=== PATIENT | female | born 1990 | race Caucasian/White ===

== ENCOUNTER 2018-07-25 16:01 | Inpatient (IN) | payer BC, OTHER ==
[~2018-07-25] VITALS: Ht 152.4 cm; Wt 90.3 kg
[2018-07-25 17:18] LABS: BASOPHILS ABSOLUTE AUTO 0.04 K/mm3 (0.00-0.23); BASOPHILS PERCENT AUTO 0 % (0-2); EOSINOPHILS ABSOLUTE AUTO 0.04 K/mm3 (0.00-0.68); EOSINOPHILS PERCENT AUTO 0 % (0-6); Hematocrit 36.1 % (33.0-51.0); Hemoglobin 11.6 g/dL (11.5-16.0); IMMATURE GRAN PERCENT AUTO 1 % (0-1); LYMPHOCYTES ABSOLUTE AUTO 1.47 K/mm3 (0.84-5.20); LYMPHOCYTES PERCENT AUTO 8 % (21-46); MONOCYTES ABSOLUTE AUTO 1.27 K/mm3 (0.16-1.47); MONOCYTES PERCENT AUTO 7 % (4-13); Mean Corpuscular HGB 26.4 pg (26.0-34.0); Mean Corpuscular HGB Conc 32.1 g/dL (31.5-36.5); Mean Corpuscular Volume 82 fL (80-100); Mean Platelet Volume 10.8 fL (9.1-12.4); NEUTROPHILS ABSOLUTE AUTO 15.18 K/mm3 (1.96-9.15); NEUTROPHILS PERCENT AUTO 84 % (41-73); Platelet Count 218 K/mm3 (150-400); RDW Coefficient Variation 14.2 % (11.7-14.2); RDW Standard Deviation 41.9 fL (35.1-46.3)
--- NOTE | 2018-07-26 15:30 | NUR ---
REPOT TO [facility]
--- NOTE | 2018-07-26 17:47 | NUR ---
CONSULT. BABY IS IN SCN WITH IVF AND IS LESS THAN 12 HOURS OLD. INSTRUCT/DEMO SELF EBM, POSITIONING TO OBTAIN A DEEPER ASYMETRIC LATCH AND FURTHER WIDEN THE LATCH FOR COMFORT. BABY DISPLAYS GOOD SUCKLING AND STAYED AT BREAST FOR 20 MINUTES. INSTRUCT IN SKIN TO SKIN TIME AFTER BF, CHANGES TO EXPECT DURING THE FIRST WEEK WITH BABY AND WITH FEEDINGS. MOM IS LOVING WITH BABY.
--- NOTE | 2018-07-26 20:18 | NUR ---
PT REPEATEDLY STATED SHE IS NERVOUS BECAUSE SHE DOESN'T KNOW HOW TO HANDLE BABY OR GET HER TO LATCH ON HER OWN. RN REASSURED PT THAT SHE IS DOING WELL AND THAT IT IS NORMAL TO FEEL THIS WAY BECAUSE SHE HAS NEVER DONE IT BEFORE AND THAT ALL OF THE STAFF IS HERE TO HELP HER, SHE JUST NEEDS TO LET US KNOW IF SHE HAS ANY QUESTIONS OR NEEDS HELP AT ANY TIME.
[2018-07-27 05:50] LABS: BASOPHILS ABSOLUTE AUTO 0.06 K/mm3 (0.00-0.23); BASOPHILS PERCENT AUTO 0 % (0-2); EOSINOPHILS ABSOLUTE AUTO 0.17 K/mm3 (0.00-0.68); EOSINOPHILS PERCENT AUTO 1 % (0-6); Hematocrit 30.8 % (33.0-51.0); Hemoglobin 9.8 g/dL (11.5-16.0); IMMATURE GRAN ABSOLUTE AUTO 0.11 K/mm3 (0.00-0.10); IMMATURE GRAN PERCENT AUTO 1 % (0-1); LYMPHOCYTES ABSOLUTE AUTO 2.84 K/mm3 (0.84-5.20); LYMPHOCYTES PERCENT AUTO 17 % (21-46); MONOCYTES ABSOLUTE AUTO 1.45 K/mm3 (0.16-1.47); MONOCYTES PERCENT AUTO 9 % (4-13); Mean Corpuscular HGB 26.5 pg (26.0-34.0); Mean Corpuscular HGB Conc 31.8 g/dL (31.5-36.5); Mean Corpuscular Volume 83 fL (80-100); Mean Platelet Volume 10.3 fL (9.1-12.4); NEUTROPHILS ABSOLUTE AUTO 11.75 K/mm3 (1.96-9.15); NEUTROPHILS PERCENT AUTO 72 % (41-73); Platelet Count 174 K/mm3 (150-400); RDW Coefficient Variation 14.6 % (11.7-14.2); RDW Standard Deviation 44.7 fL (35.1-46.3); White Blood Cell Count 16.38 K/mm3 (4.00-11.30)
--- NOTE | 2018-07-27 11:33 | NUR ---
Pt resting in bed, FOB holding nb. Denies needs at this time.
[2018-07-27] MEDS ORDERED: IBUP800 PO (14:19)
--- NOTE | 2018-07-27 18:21 | NUR ---
Printed d/c instructions reviewed w/pt. Questions answered to her satisfaction. No acute changes this shift. Pt d/c'd to boarder.
== END 2018-07-27 18:25 | disposition home or self-care (01) | DRG 807 ==
LOC: OBS 16:01 → BC 16:06 → OBS 16:10 → BC 16:10 → OBS 16:10 → BC 16:23
PROVIDERS: ADMIT Obstetrics & Gynecology
PROC: 10E0XZZ Delivery of Products of Conception, External Approach (ICD-10-PCS; principal; 2018-07-26)
PROC: 0HQ9XZZ Repair Perineum Skin, External Approach (ICD-10-PCS; 2018-07-26)
PROC: 3E0R3BZ Introduction of Anesthetic Agent into Spinal Canal, Percutaneous Approach (ICD-10-PCS; 2018-07-26)
PROC: 10907ZC Drainage of Amniotic Fluid, Therapeutic from Products of Conception, Via Natural or Artificial Opening (ICD-10-PCS; 2018-07-26)
PROC: 3E0234Z Introduction of Serum, Toxoid and Vaccine into Muscle, Percutaneous Approach (ICD-10-PCS; 2018-07-27)
DX: O69.1XX0 Labor and delivery complicated by cord around neck, with compression, not applicable or unspecified (principal); Z37.0 Single live birth; O70.0 First degree perineal laceration during delivery; Z3A.40 40 weeks gestation of pregnancy; Z23 Encounter for immunization; O77.0 Labor and delivery complicated by meconium in amniotic fluid
CPT/HCPCS: 36415; 51702; 85025; 90686; J1885; J2210; J2590; J3010; J7120

== ENCOUNTER → 2019-06-17 | Outpatient (CLI) | payer OTHER ==
[~2019-06-17] MED LIST: IBUP800 PO
[2019-06-27 10:20] LABS: CHLAMYDIA TRACHOMATIS, NAA Negative (Negative); NEISSERIA GONORRHOEAE, NAA Negative (Negative)
== END | disposition home or self-care (01) ==
LOC: LAB SHORT 18:07 → LAB 18:07
PROVIDERS: Obstetrics & Gynecology
DX: Z34.81 Encounter for supervision of other normal pregnancy, first trimester (principal)
CPT/HCPCS: 87491; 87591; G0123

== ENCOUNTER → 2019-12-23 | Outpatient (CLI) | payer OTHER | END | disposition home or self-care (01) | LOC: LAB SHORT 17:29 → LAB 17:29 | DX: Z34.83 Encounter for supervision of other normal pregnancy, third trimester (principal); Z3A.36 36 weeks gestation of pregnancy | CPT/HCPCS: 87081; 87653 ==

== ENCOUNTER 2020-01-10 18:44 | Inpatient (IN) | payer OTHER ==
[~2020-01-10] VITALS: Ht 152.4 cm; Wt 98.0 kg
[2020-01-10] MEDS ORDERED: PRENATAL TABLE1 EAC2 PO (19:59)
[2020-01-10 20:10] LABS: BASOPHILS ABSOLUTE AUTO 0.02 K/mm3 (0.00-0.23); BASOPHILS PERCENT AUTO 0 % (0-2); EOSINOPHILS PERCENT AUTO 1 % (0-6); Hematocrit 36.5 % (33.0-51.0); Hemoglobin 11.2 g/dL (11.5-16.0); IMMATURE GRAN ABSOLUTE AUTO 0.08 K/mm3 (0.00-0.10); IMMATURE GRAN PERCENT AUTO 1 % (0-1); LYMPHOCYTES ABSOLUTE AUTO 1.68 K/mm3 (0.84-5.20); LYMPHOCYTES PERCENT AUTO 11 % (21-46); MONOCYTES ABSOLUTE AUTO 1.12 K/mm3 (0.16-1.47); MONOCYTES PERCENT AUTO 8 % (4-13); Mean Corpuscular HGB 24.6 pg (26.0-34.0); Mean Corpuscular HGB Conc 30.7 g/dL (31.5-36.5); Mean Corpuscular Volume 80 fL (80-100); Mean Platelet Volume 11.5 fL (9.1-12.4); NEUTROPHILS PERCENT AUTO 80 % (41-73); Platelet Count 192 K/mm3 (150-400); RDW Coefficient Variation 15.1 % (11.7-14.2); RDW Standard Deviation 43.7 fL (35.1-46.3); Red Blood Cell Count 4.56 M/mm3 (3.80-5.20)
[2020-01-11 07:50] LABS: PCO2 Cord - Arterial 66.4 mmHg (40-50)
[2020-01-11 07:56] LABS: PCO2 Cord - Venous 60.4 mmHg (40-50); pH Umbilical Cord - Venous 7.06 (7.26-7.35)
--- NOTE | 2020-01-11 10:08 | NUR ---
ASSUMED CARE OF PATIENT SHE WAS BEING WHEELED TO THE OR FOR A STAT FOR INTOLERANCE OF LABOR. REPORT FROM [facility], WAS THAT [facility] HAD BEEN TACHY WITH LATE DECELS FOR A COUPLE OF HOURS. AROM THICK MEC. VACCUUM ATTEMPTED X 5 WITH POP OFF X 2
--- NOTE | 2020-01-11 17:05 | NUR ---
RN ROUNDED TO TALK W/ PT ABOUT PUMPING. PT HAS BEEN PUMPING EVERY 2.5-3.25 HOURS. INSTRUCTED PT TO PUMP ON HIGHEST COMFORTABLE SETTING. INSTRUCTED PT TO HAND EXPRESS, PT REPORTS SHE KNOW HOW TO HAND EXPRESS AND WILL DO FOR SEVERAL MINUTES BEFORE APPLYING BREAST PUMP. PT DENIES ANY FURTHER QUESTIONS OR CONCERNS.
[2020-01-12 05:28] LABS: Hematocrit 24.4 % (33.0-51.0); Hemoglobin 7.6 g/dL (11.5-16.0); Mean Corpuscular HGB 25.4 pg (26.0-34.0); Mean Corpuscular HGB Conc 31.1 g/dL (31.5-36.5); Mean Corpuscular Volume 82 fL (80-100); Mean Platelet Volume 11.1 fL (9.1-12.4); Platelet Count 156 K/mm3 (150-400); RDW Coefficient Variation 15.6 % (11.7-14.2); RDW Standard Deviation 45.6 fL (35.1-46.3); Red Blood Cell Count 2.99 M/mm3 (3.80-5.20); White Blood Cell Count 18.02 K/mm3 (4.00-11.30)
[2020-01-12] MEDS ORDERED: IBUP800 PO (13:18)
[2020-01-12] MEDS ORDERED: Percocet 5-3251 EACH PO (13:19)
--- NOTE | 2020-01-13 09:39 | NUR ---
pt ready to dc home, waiting for to come and pick baby up, [facility] dad is taking baby home. baby is not a patient.
--- NOTE | 2020-01-13 10:45 | NUR ---
01/13/20 1045 Madeline Jurado AUDITS, CHART VERIFICATIONS.
== END 2020-01-13 10:15 | disposition home or self-care (01) | DRG 788 ==
LOC: OBS 18:44 → BC 18:51 → OBS 19:18 → BC 19:22
PROVIDERS: Family Medicine; ADMIT Obstetrics & Gynecology
PROC: 10907ZC Drainage of Amniotic Fluid, Therapeutic from Products of Conception, Via Natural or Artificial Opening (ICD-10-PCS; 2020-01-11)
PROC: 3E0R3BZ Introduction of Anesthetic Agent into Spinal Canal, Percutaneous Approach (ICD-10-PCS; 2020-01-11)
PROC: 00HU33Z Insertion of Infusion Device into Spinal Canal, Percutaneous Approach (ICD-10-PCS; 2020-01-11)
PROC: 10D00Z1 Extraction of Products of Conception, Low, Open Approach (ICD-10-PCS; principal; 2020-01-11 07:00)
DX: O77.0 Labor and delivery complicated by meconium in amniotic fluid (principal); O76 Abnormality in fetal heart rate and rhythm complicating labor and delivery; O99.824 Streptococcus B carrier state complicating childbirth; O62.1 Secondary uterine inertia; O66.5 Attempted application of vacuum extractor and forceps; Z37.0 Single live birth; Z3A.39 39 weeks gestation of pregnancy
CPT/HCPCS: 36415; 51702; 82803; 85025; 85027; 86850; 86900; 86901; A9270; J0290; J0330; J0690; J1100; J1885; J2001; J2210; J2370; J2405; J2590; J2704; J2765; J3010; J7120; U0002

== ENCOUNTER → 2022-08-04 | Outpatient (CLI) | payer OTHER ==
[~2022-08-04] MED LIST changes: +PRENATAL TABLE1 EAC2 PO; +Percocet 5-3251 EACH PO
== END | disposition home or self-care (01) ==
LOC: LAB SHORT 09:30 → LAB 09:30
DX: J02.9 Acute pharyngitis, unspecified (principal)
CPT/HCPCS: 87081